=== PATIENT | male | born 1985 | race Caucasian/White ===

== ENCOUNTER 2022-10-20 13:26 | Emergency (ER) | payer OTHER ==
[~2022-10-20] VITALS: Ht 175.3 cm; Wt 93.3 kg
[~2022-10-20 13:26] MED LIST: ACETAMINOP80 MG/0.8; CRUTCH1 EACH; IBUPROFEN600 MG PO; IBUPROFEN800 MG PO; LIDOCAINE30 G TOP; NORCO 7.5-3251 EACH PO
[2022-10-20] MEDS ORDERED: ONDANSETRON ODT8 MG PO (14:30)
[2022-10-20] MEDS ORDERED: DONNATAL TABL16.2 MG PO (14:30)
== END 2022-10-20 15:35 | disposition home or self-care (01) ==
LOC: ED 13:26
DX: K52.9 Noninfective gastroenteritis and colitis, unspecified (principal); F17.200 Nicotine dependence, unspecified, uncomplicated
CPT/HCPCS: 36415; 80053; 83690; 85025; 85610; 86850; 86900; 86901; 96374; 96375; 99284-25; C9113; J2405; J7030

== ENCOUNTER → 2023-10-01 | Day surgery (SDC) | payer BC ==
[~2023-10-01] VITALS: Ht 180.3 cm; Wt 86.4 kg
[~2023-10-01] MED LIST changes: +BUPIVACAINE HCL 0.25% 50 ML MDV ONE; +CEFAZOLIN SODIUM 2 GM/20 ML SYR IV SCH; +DEXAMETHASONE SOD PHOS 4 MG/ML VIAL ONE; +DICLOFENAC SOD 75 MG TABEC PO SCH; +DICLOFENAC SODI75 MG PO; +DONNATAL TABL16.2 MG PO; +HYDROCODON-ACE1 EA11 PO; +HYDROCODONE/ACETA 7.5/325 TAB PO PRN; +IBLOOD GLUCOSE TEST STRIP 1 EA TEST VI PRN; +KETOROLAC TROMETHAMINE 15 MG/ML VIAL IV PRN; +KETOROLAC TROMETHAMINE 30 MG/ML VIAL IV PRN; +LACTATED RINGER'S 1,000 ML IV SCH; +LIDOCAINE HCL 1% 5 ML SDV INJ ONE; +LIDOCAINE HCL 2% 5 ML SDV ONE; +MIDAZOLAM HCL 2 MG/2 ML VIAL ONE; +NALOXONE HCL 0.4 MG SYR IV PRN; +ONDANSETRON ODT8 MG PO; +Ropivacaine HCl 0.5% 30 ML VIAL ONE; +VARENICLINE TART1 MG PO; +dexmedeTOMIDine HCl 200 MCG/2 ML VIAL ONE; +fentaNYL citrate 100 MCG/2 ML VIAL IV PRN; +fentaNYL citrate 100 MCG/2 ML VIAL ONE; +ondansetron HCL 4 MG/2 ML VIAL IV PRN; +ondansetron HCL 4 MG/2 ML VIAL ONE; +propofoL 200 MG/20 ML VIAL ONE
[2023-10-01 10:59] VITALS: BP 138/91
--- NOTE | 2023-10-01 15:04 | NUR ---
10/01/23 Alfredo4 Elizabeth Ramirez 1448- PT PRESENTS TO PACU, SEMI PLASCENCIA POSITION. NON REACTIVE TO STIMULUS AT THIS TIME. LR INFUSING TO LH IV. PT ON ROOM AIR AND MAINTAINING SATS 92-94%. ALL MONITORS IN PLACE. SLING TO RIGHT ARM, PULSES STRONG, DRESSINGS IN PLACE CDI. 1500- PT REACTIVE TO VERBAL STIMULI. OPENS EYES, REORIENTED TO TIME AND PLACE. PT DENIES PAIN AND NAUSEA. FALLS BACK TO SLEEP.
[2023-10-01 15:31] VITALS: BP 134/89
[2023-10-01 16:14] VITALS: BP 157/88
--- NOTE | 2023-10-01 16:29 | NUR ---
LE 1525 PATIENT BACK TO ROOM 4 FROM PACU. REPORT RECIEVED FROM CORBY HEALY. PATIENT ALERT AND ORIENTED. BREATHING EQUAL AND UNLABORED. OXYGEN SATURATIONS ABOVE 90% ON ROOM AIR. PATIENT CRYO CUFF IN PLACE. SURGICAL DRESSING CLEAN, DRY AND INTACT. IVF INFUSING. SCD'S ON. PATIENT DENIES PAIN. CMST INTACT. PULSES FELT STRONG. LE 1545 PATIENT ABLE TO AMBULATE AND VOID. PATIENT TOLERATED AMBULATION WELL. LE 1625 PATIENT ABLE TO DRESS SELF AND TOLERATE IT WELL. IV D/C'D WNL. DISCHARGE INSTRUCTIONS. NO QUESITONS AT THIS TIME. PATIENT WHEELED OUT OF FACILITY.
--- NOTE | 2023-10-05 06:59 | OR ---
[facility] [address], [place] [address] Signed DATE OF OPERATION: 10/01/2023 SURGEON: Chaitanya Carrero MD PREOPERATIVE DIAGNOSIS: SLAP tear, right shoulder. POSTOPERATIVE DIAGNOSIS: SLAP tear, right shoulder. PROCEDURE PERFORMED: Right shoulder arthroscopy with SLAP repair. ESTATE PLANNING COUNSELOR: None. ANESTHESIA: General. BLOOD LOSS: Minimal. IMPLANTS: Two Arthrex push locks. BRIEF HISTORY: Jacoby is a 38-year-old gentleman with pain in his shoulder. Nonoperative rehab was unsuccessful managing his pain. MRI was consistent with SLAP tear. Risks and benefits of operative treatment were discussed with him and he elected to proceed. DESCRIPTION OF PROCEDURE: Once consent was obtained, he was taken to the operating room. After adequate anesthesia, he was placed in a beach chair position. All downside pressure points were well padded. The right shoulder was prepped and draped in a standard sterile fashion. The shoulder was injected with 15 mL of 0.25% Marcaine with epinephrine into the subacromial space. Standard posterior portal was made and the scope was introduced into the shoulder. ARTHROSCOPIC FINDINGS: There was significant synovitis anteriorly and superiorly along the joint line. The Electronically Signed By: CHAITANYA CARRERO MD 10/05/23 0659 PATIENT NAME: JACOBY GRECO OPERATIVE REPORT DATE OF : 81 REPORT #: [id number] PHYSICIAN: CHAITANYA CARRERO MD PCP: BAILEY DE LEÓN MD REPORT IS CONFIDENTIAL AND NOT TO BE RELEASED WITHOUT AUTHORIZATION [facility] [address] [facility] [place], [place] [address] Signed undersurface of the rotator cuff was intact. The glenohumeral surfaces were intact. The biceps was intact, however, its attachment to the labrum was torn. This tear extended anteriorly to about 2 o'clock position posteriorly to the corner. The biceps was unstable on this. DESCRIPTION OF OPERATION: Standard anterior lateral portals were established and the glenoid rim was debrided back to a bony bed that was well perfused. Two fiber length sutures were placed around the labrum just anterior to the biceps and at the 1 o'clock position. Two anchors were subsequently placed into the glenoid after drilling appropriate holes. Excellent fixation of the glenoid labrum to the glenoid was visualized. Both sutures were cut. The shoulder was taken through range of motion and the repair was stable. The scope was withdrawn. Portals were closed with 3-0 nylon and the wounds were dressed with Allevyn and Tegaderm. He tolerated the procedure well. All sponge, needle, and instrument counts were correct. Chaitanya Carrero MD BA/DAVIDSONL /[id number] Copies: ~ Electronically Signed By: CHAITANYA CARRERO MD 10/05/23 0659 PATIENT NAME: JACOBY GRECO OPERATIVE REPORT DATE OF : 81 REPORT #: [id number] PHYSICIAN: CHAITANYA CARRERO MD PCP: BAILEY DE LEÓN MD REPORT IS CONFIDENTIAL AND NOT TO BE RELEASED WITHOUT AUTHORIZATION
== END ==
LOC: DS 09-17 09:15
PROVIDERS: ATTEND Specialist
PROC: 3E0T3BZ Introduction of Anesthetic Agent into Peripheral Nerves and Plexi, Percutaneous Approach (ICD-10-PCS; 2023-10-01)
PROC: 0LM14ZZ Reattachment of Right Shoulder Tendon, Percutaneous Endoscopic Approach (ICD-10-PCS; principal; 2023-10-01 14:05)
DX: S43.431A Superior glenoid labrum lesion of right shoulder, initial encounter (principal)
CPT/HCPCS: 01630; 64415; 76942; C1713; J0690; J1100; J2001; J2250; J2405; J2704; J2795; J3010; J7121